=== PATIENT | female | born 1975 | race Caucasian/White ===

== ENCOUNTER → 2020-09-10 | Outpatient (CLI) | payer MEDICARE ==
[~2020-09-10] MED LIST: GADOTERATE 7.5 MMOL/15ML SYR ONE
== END | disposition home or self-care (01) ==
LOC: RAD 08:57
PROVIDERS: ATTEND Nurse Practitioner Family
DX: M51.24 Other intervertebral disc displacement, thoracic region (principal); G35 Multiple sclerosis; M62.81 Muscle weakness (generalized); J34.89 Other specified disorders of nose and nasal sinuses
CPT/HCPCS: 70553; 72156; 72157; A9575